=== PATIENT | male | born 1965 | race Caucasian/White ===

== ENCOUNTER 2017-01-23 09:57 | Emergency (ER) | payer OTHER ==
[~2017-01-23] VITALS: Ht 180.3 cm; Wt 104.3 kg
[~2017-01-23 09:57] MED LIST: ALBUTEROL SULF8.5 GM IH; CLINDAMYCIN HC300 MG PO; FLEXERIL10 MG PO; FOSINOPRIL SODI10 MG PO; FOSINOPRIL SODI20 MG PO; MOTRIN600 MG PO; NAPROSYN500 MG PO; NORCO 5/3251 TABLET PO; PREDNISONE20 MG PO; ULTRAM50 MG PO
[2017-01-23] MEDS ORDERED: NAPROSYN500 MG PO (11:53)
[2017-01-23] MEDS ORDERED: FLEXERIL10 MG PO (11:53)
[2017-01-23 12:01] VITALS: BP 167/87
== END 2017-01-23 12:02 | disposition home or self-care (01) ==
LOC: EME 09:57
DX: M54.5 Low back pain (principal); M62.838 Other muscle spasm; I10 Essential (primary) hypertension; F17.200 Nicotine dependence, unspecified, uncomplicated
CPT/HCPCS: 99281; 99284